=== PATIENT | female | born 1995 | race Caucasian/White ===

== ENCOUNTER 2017-01-25 17:12 | Outpatient (CLI) | payer OTHER ==
[~2017-01-25] VITALS: Ht 157.5 cm; Wt 72.0 kg
[2017-01-25] MEDS ORDERED: PRENTAB9 PO (17:24)
[2017-01-25 17:32] VITALS: BP 139/79
[2017-01-25 18:45] VITALS: BP 138/72
[2017-01-25 20:33] VITALS: BP 126/66
--- NOTE | 2017-01-25 22:57 | HPE ---
DATE OF ADMISSION: 01/25/2017 This lady is a 21-year-old 1, para 0, LMP 05/20/2016, EDC 02/24/2017 at 35 and 5 weeks of gestation, comes in with history shortness of breath, rapid heart rate, uterine irritability. This is of recent onset. She just recently had on Monday which was 2 days ago evaluation by her OB and everything appeared to be normal. Her labs show that she is A+, HIV negative, hepatitis negative, RPR negative, rubella nonimmune. Varicella by history. Urine was negative. Gonorrhea, chlamydia negative. She has had recurring urinary tract infection (UTI) and said test of cures. Her GTT was 98. CF was negative. Echogenic focus was noted in the heart, but the patient declined investigation. Her risk factors is she has anxiety. PHYSICAL EXAMINATION: On examination she does not appear distressed, but the baby is very active and every time it moves causes her discomfort in her abdomen. Her oxygen saturations on room air are 98%. Her EKG shows ventricular tachycardia. She has good deep inspiration. HEENT: She is normocephalic, atraumatic. Neck: Full range of motion. Pupils equal and reactive to light. Distal pulses are symmetric. No evidence of deep venous thrombosis (DVT), pulmonary embolism (PE) or superficial phlebitis. Thyroid is normal, midline, 30 grams, nontender. No bruits. No bruits or wheezes. Lungs are clear to bases. No rhonchi or wheezes. No CVA tenderness. Appropriate symphysis fundus height, nontender. There is activity of the fetus and four quadrant bowel sounds are noted. She has no rashes or lesions or pruritus. No arthralgia or myalgia. No complaints of cough, wheezes, shortness of breath or dyspnea on exertion, no chest pain, not bleeding. Neuro complete. No incontinence, urgency or frequency. No nausea, vomiting, diarrhea or constipation. No diabetic issues. No past gynecology history. She was under 21 and did not have a Pap smear. MEDICAL HISTORY: Noncontributory. FAMILY HISTORY: Noncontributory. She does not smoke or drink, abuse drugs. She is . There is no domestic violence. Her blood pressure is 126/66, respirations are 18, pulse is 100 and regular, temperature is 98.9. Urine is 10.05, pH 6, negative, negative, negative. On pelvic examination not dilated, high posterior. There is no vaginal loss or vaginal bleeding. Symphysis fundus height is appropriate. PLAN OF MANAGEMENT: Get her a cardiology consult, maintain her appointment on 02/07/2017. Precautions were given against fainting, dizziness, loss of consciousness and when to contact the provider. We will arrange for immediate cardiology consult. The patient was discharged, undelivered.
--- NOTE | 2017-01-26 07:31 | ECGEPIP ---
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
== END 2017-01-25 22:44 | disposition home or self-care (01) ==
LOC: M LDO 17:12
PROVIDERS: ATTEND Advanced Practice Midwife
DX: O99.89 Other specified diseases and conditions complicating pregnancy, childbirth and the puerperium (principal); R06.02 Shortness of breath; R10.2 Pelvic and perineal pain; R07.89 Other chest pain; O62.0 Primary inadequate contractions; Z87.440 Personal history of urinary (tract) infections; Z3A.35 35 weeks gestation of pregnancy

== ENCOUNTER → 2017-01-27 | Outpatient (CLI) | payer OTHER ==
[~2017-01-27] MED LIST: PRENTAB9 PO
[2017-01-27 15:04] LABS: BASO % 0.2 % (0.0-1.0); EOS # 0.1 K/mm3 (0.0-0.50); EOS % 0.5 % (0.0-3.0); LARGE UNSTAINED CELL # 0.2 K/mm3 (0.0-0.4); LARGE UNSTAINED CELL % 1.6 % (0.0-4.0); LYMPH # 1.3 K/mm3 (1.5-6.5); LYMPH % 10.1 % (24.0-44.0); MEAN CORPUSCULAR HEMOGLOBIN 31.9 pg (27.0-33.0); MEAN CORPUSCULAR HGB CONC 33.5 g/dl (32.0-36.5); MEAN CORPUSCULAR VOLUME 95.2 fl (80.0-96.0); MONO # 0.7 K/mm3 (0.0-0.8); MONO % 6.3 % (0.0-5.0); NEUTROPHILS # 8.8 K/mm3 (1.8-7.7); NEUTROPHILS % 81.2 % (36.0-66.0); PLATELET COUNT, AUTOMATED 188 k/mm3 (150-450); RED CELL DISTRIBUTION WIDTH 12.5 % (11.5-14.5); WHITE BLOOD COUNT 10.8 K/mm3 (4.0-10.0)
--- NOTE | 2017-01-27 15:54 | REP ---
Duplex extremity venous ultrasound: Bilateral lower extremities. History: Bilateral leg swelling times 3 days. 36 weeks gestation. Chest pain. Findings: The deep veins are anechoic and fully compressible from the groin to the popliteal fossa in the right and left lower extremity. Color flow imaging is homogeneous. Spectral Doppler interrogation demonstrates intact respiratory variation in flow and normal manual augmentation of flow. There is no evidence of deep vein thrombosis. Impression: Negative bilateral lower extremity duplex venous ultrasound. No evidence of deep vein thrombosis. Signed by Rodriguez Ritter MD 01/27/2017 03:46 P
== END ==
LOC: M LAB 14:16
PROVIDERS: ATTEND Internal Medicine Cardiovascular Disease
DX: O99.89 Other specified diseases and conditions complicating pregnancy, childbirth and the puerperium (principal); R06.02 Shortness of breath; R00.0 Tachycardia, unspecified; R60.9 Edema, unspecified; Z3A.36 36 weeks gestation of pregnancy

== ENCOUNTER 2017-02-03 09:52 | Outpatient (CLI) | payer OTHER ==
[~2017-02-03] VITALS: Ht 157.5 cm; Wt 74.0 kg
[2017-02-03 10:02] VITALS: BP 128/66
--- NOTE | 2017-02-04 15:05 | HPE ---
DATE OF ADMISSION: 02/03/2017 HISTORY OF PRESENT ILLNESS: This lady is a 21-year-old 1, para zero, last menstrual period (LMP) 09/2016, estimated date of confinement (EDC) 02/23/2017, at 36 and 2 weeks of gestation with a history of a gush of fluid and contractions. Labs are A positive, HIV negative, hepatitis negative, RPR negative, rubella immune. Varicella nonimmune. Urine negative. Gonorrhea and chlamydia are negative. Initial one-hour glucose was 81 and the 28-week glucose tolerance test (GTT) was 98. Group B streptococcus (GBS) status is unknown. She has no essential risk factors. EXAMINATION: When examined today, she is in no acute distress. Symphysis fundus height is 36, vertex presenting. Category one strip. Examination of her cervix is closed, high posterior, not dilated. No vaginal bleeding. No vaginal loss. Nitrazine was negative. Ferning was negative. PV was negative. She has a category one strip. Her blood pressure 128/66, respirations are 20, pulse is 93 and temperature 98.9 and she is not exhibiting any contractions. Her urine is 1.005, pH of 7, and all the rest is negative. The rest of the examination is unremarkable. She is normocephalic, atraumatic. Neck full range of motion. Pupils equal and reactive to light. Distal pulses symmetric. No evidence of deep venous thrombosis (DVT), pulmonary embolism (PE) or superficial phlebitis. Chest is clear bilaterally to bases. No wheezes or rhonchi. Uterus is nontender. Four quadrant bowel sounds. Category one and nontender uterus. No rashes, lesions or pruritus. No arthralgia or myalgia. No complaints of cough, wheezes, shortness of breath or dyspnea on exertion. No chest pain, not bleeding. Neuro complete. No incontinence, urgency or frequency. No nausea, vomiting, diarrhea or constipation. No diabetic issues. There are no gynecologic issues. PAST MEDICAL AND SURGICAL HISTORY: Noncontributory. FAMILY HISTORY: Noncontributory. SOCIAL HISTORY: She is . There is no domestic violence. ASSESSMENT: In summary, we have a 36 and six with no loss of fluid. No contractions. Discharged with precautions. Has an appointment on February 08, 2017. We spent 35 minutes discussing and an educational component.
== END 2017-02-03 11:32 | disposition home or self-care (01) ==
LOC: M LDO 09:52
PROVIDERS: ATTEND Obstetrics & Gynecology
DX: O26.893 Other specified pregnancy related conditions, third trimester (principal); Z3A.36 36 weeks gestation of pregnancy

== ENCOUNTER 2017-02-27 22:10 | Outpatient (CLI) | payer OTHER ==
[~2017-02-27] VITALS: Ht 157.5 cm; Wt 77.0 kg
== END 2017-02-27 23:07 | disposition home or self-care (01) ==
LOC: M LDO 22:10
PROVIDERS: ATTEND Student in an Organized Health Care Education/Training Program
DX: O36.8130 Decreased fetal movements, third trimester, not applicable or unspecified (principal); Z3A.40 40 weeks gestation of pregnancy

== ENCOUNTER 2017-03-02 22:35 | Inpatient (IN) | payer OTHER ==
[~2017-03-02] VITALS: Ht 157.5 cm; Wt 78.0 kg
[2017-03-02 22:50] VITALS: BP 115/72
[2017-03-03] VITALS (28 sets, daily range): BP systolic 94–161; BP diastolic 50–88
[2017-03-03] MEDS ORDERED: LR 1,000 ML IV SCH ×2 (00:55→06:04)
[2017-03-03 01:10] LABS: MEAN CORPUSCULAR HEMOGLOBIN 32.4 pg (27.0-33.0); MEAN CORPUSCULAR HGB CONC 34.2 g/dl (32.0-36.5); MEAN CORPUSCULAR VOLUME 94.8 fl (80.0-96.0); RED CELL DISTRIBUTION WIDTH 12.6 % (11.5-14.5); WHITE BLOOD COUNT 14.8 K/mm3 (4.0-10.0)
[2017-03-03] MEDS ORDERED: NALBUPHINE HCL 10 MG/ML AMP (J2300) IV ONE (04:30)
[2017-03-03] MEDS ORDERED: NALBUPHINE HCL 10 MG/ML AMP (J2300) IM ONE (04:30)
[2017-03-03] MEDS ORDERED: PROMETHAZINE INJ 25 MG/ML VIAL (J2550) IV ONE (04:30)
[2017-03-03] MEDS ORDERED: OXYTOCIN DRIP 30 UNITS in APPROPRIATE DILUENT 1 EA IV SCH (06:15)
[2017-03-03] MEDS ORDERED: FENTANYL 2MCG/ML ROPIVACAINE 0.2% IN 0.9% NACL 200ML IVBAG As Ordered ONE (08:57)
[2017-03-03] MEDS: DOCUSATE SODIUM 100 MG CAP PO SCH ×2 (09:00→20:58)
[2017-03-03] MEDS ORDERED: diphenhydrAMINE INJ 50MG/ML VIAL (J1200) IV PRN ×2 (10:00→12:45)
[2017-03-03] MEDS ORDERED: LACTATED RINGER'S 1000 ML IV PRN (10:00)
[2017-03-03] MEDS ORDERED: REFRIGERATOR IV KEYS XX PRN (10:00)
[2017-03-03] MEDS ORDERED: EPIDURAL/PCA KEYS XX PRN (10:00)
[2017-03-03] MEDS ORDERED: NALOXONE INJ 0.4 MG/1 ML VIAL (J2310) IV PRN ×3 (10:00→11:10)
[2017-03-03] MEDS ORDERED: EPIDURAL COMMENT XX SCH (10:00)
[2017-03-03] MEDS ORDERED: ePHEDrine SULFATE 25 MG/5 ML(5MG/ML) SYRINGE IV PRN (10:00)
[2017-03-03] MEDS ORDERED: ONDANSETRON 4MG/2ML VIAL (J2405) IV PRN ×3 (10:00→12:45)
[2017-03-03] MEDS ORDERED: FENTANYL/ROPIVACAINE/NACL BAG 200 ML EPIDURAL SCH (10:00)
--- NOTE | 2017-03-03 10:40 | IPNPDOC ---
Text Note Date of Service The patient was seen on 03/03/17. NOTE I assumed care for Mary Carmen at [address] Nieves. Presently she is comfortable with epidural, on pitocin. Presented last night with PROM and SCE was 1/90/-2. She is now 5/80/-1, regular ctx. Cat II tracing with intermittent variable and late decels, mod antoinette, +accels. Meconium present. Had one isolated temp earlier of 100.7F but immediate re-check was 98F and no further temperature elevations. FSE placed during this recent check. She has O2 on, has received 2 IVF boluses, is on her side. Will continue to closely monitor. If no cervical progression in the setting of Cat II tracing, will proceed to . Patient aware. Dr. Nusrat Austin MD VS,Coleman, I+O VS, Coleman, I+O Laboratory Tests 03/03/17 00:57 Red Blood Count 3.76 L, Mean Corpuscular Volume 94.8, Mean Corpuscular Hemoglobin 32.4, Mean Corpuscular Hemoglobin Concent 34.2, Red Cell Distribution Width 12.6 Vital Signs Date Time Temp Pulse Resp B/P (MAP) Pulse Ox O2 Delivery O2 Flow Rate FiO2 03/03/17 05:38 98.0 53 18 105/50 (68) NUSRAT AUSTIN MD March 03, 2017 10:40
[2017-03-03] MEDS ORDERED: TERBUTALINE SULFATE 1 MG/ML VIAL (J3105) As Ordered ONE (10:46)
[2017-03-03] MEDS ORDERED: ceFAZolin 2 GM/D5W 50 ML IV BAG (J0690) As Ordered ONE (11:06)
[2017-03-03] MEDS ORDERED: METOCLOPRAMIDE INJ 10MG/2ML VIAL (J2765) IV PRN (11:10)
[2017-03-03] MEDS ORDERED: NALBUPHINE HCL 10 MG/ML AMP (J2300) IV PRN ×2 (11:10→12:45)
[2017-03-03] MEDS ORDERED: fentaNYL 100 MCG/2 ML INJECTION (J3010) As Ordered ONE (11:13)
[2017-03-03] MEDS ORDERED: SUCCINYLCHOLINE 100 MG/5 ML SYRINGE (J0330) As Ordered ONE (11:13)
[2017-03-03] MEDS ORDERED: PROPOFOL 200 MG/20 ML VIAL As Ordered ONE (11:13)
[2017-03-03] MEDS ORDERED: MIDAZOLAM INJ 2 MG/2 ML VIAL (J2250) As Ordered ONE (11:13)
[2017-03-03] MEDS ORDERED: MORPHINE PRES-FREE INJ 10 MG/10 ML VIAL (J2274) As Ordered ONE (11:13)
[2017-03-03] MEDS ORDERED: ONDANSETRON 4MG/2ML VIAL (J2405) As Ordered ONE (11:20)
[2017-03-03] MEDS ORDERED: KETOROLAC 60 MG/2 ML VIAL (J1885) As Ordered ONE (11:20)
[2017-03-03 11:45] LABS: CORD GAS ABE V -10.7; CORD GAS HCO3 V 16.6 MEQ/L; CORD GAS O2 SAT V 50.3 %; CORD GAS PH V 7.216 UNITS; CORD GAS PO2 V 25.3 mmHg; CORD GAS SBC V 15.2 MEQ/L; CORD GAS TCO2 V 17.9 MEQ/L
[2017-03-03] MEDS ORDERED: AZITHROMYCIN INJ 500 MG, VIAL MATE ADAPTER 1 EACH in D5W 250 ML IV ONE (12:00)
[2017-03-03] MEDS ORDERED: NORCO, ANEXSIA 5/325MG TABLET (HYDROcodone/ACETAMINOPHEN) PO PRN (12:15)
[2017-03-03] MEDS ORDERED: MEASLES,MUMPS,RUBELLA VACCINE INJ (MMR-II) (90707) SC SCH (12:15)
[2017-03-03] MEDS ORDERED: RHOGAM 300 MCG (1500 IU) INJ (J2790) IM SCH (12:15)
--- NOTE | 2017-03-03 12:15 | IPNPDOC ---
Text Note Date of Service The patient was seen on 03/03/17. NOTE See Brief operative note in hard chart and dictated full operative report for complete details of emergent PLTCS. Patient continued to have late decelerations, IUPC placed to confirm MVUs to adjust pitocin appropriately. Immediately after, there was sustained bradycardia to the 50's unresponsive to repositioning on hands and knees. Verbal consent obtained for PLTCS while patient was rushed to the OR and received betadine splash. She required GETA with continued sensation despite her epidural. Procedure was otherwise uncomplicated. Male infant OA presentation, apgars 9/9, weight 3010g or [id number] pHv 7.216, BE -10.7 IVF 1500ml LR, UOP 200ml via de jesus, EBL 500ml. Received anceph 2g IV and azithromycin 500mg IV x1 after the start of the procedure. Dr. Nusrat Austin MD VS,Coleman, I+O VS, Coleman, I+O Laboratory Tests 03/03/17 00:57 Red Blood Count 3.76 L, Mean Corpuscular Volume 94.8, Mean Corpuscular Hemoglobin 32.4, Mean Corpuscular Hemoglobin Concent 34.2, Red Cell Distribution Width 12.6 Vital Signs Date Time Temp Pulse Resp B/P (MAP) Pulse Ox O2 Delivery O2 Flow Rate FiO2 03/03/17 05:38 98.0 53 18 105/50 (68) NUSRAT AUSTIN MD March 03, 2017 12:15
[2017-03-03] MEDS ORDERED: MEPERIDINE INJ 25 MG/ML VIAL (J2175) As Ordered ONE (12:22)
--- NOTE | 2017-03-03 12:23 | REP ---
Clinical: Emergency section. Technique: Portable supine abdominal radiograph. Findings: Epidural catheter identified. No further significant foreign body material or surgical instrumentation is appreciated. The bowel gas pattern is nonspecific. The skeletal structures are intact. Impression: No significant foreign body material. Signed by Xander Love MD 03/03/2017 12:14 P
[2017-03-03] MEDS: MEPERIDINE INJ 25 MG/ML VIAL (J2175) IV PRN ×2 (12:27→13:25)
[2017-03-03] MEDS ORDERED: fentaNYL 100 MCG/2 ML INJECTION (J3010) IV PRN (12:45)
[2017-03-03] MEDS ORDERED: TERBUTALINE SULFATE 1 MG/ML VIAL (J3105) SC ONE (12:45)
[2017-03-03] MEDS: PRENATAL VITAMIN TAB PO SCH (18:06)
[2017-03-03] MEDS: KETOROLAC 30 MG/ML VIAL (J1885) IV SCH (18:07)
[2017-03-03] MEDS: AMPICILLIN SOD/SULBACTAM SOD 3 GM in D5W MINI-BAG PLUS 100 ML IV SCH (23:37)
[2017-03-04] MEDS: KETOROLAC 30 MG/ML VIAL (J1885) IV SCH ×3 (00:11→12:28)
[2017-03-04 02:30] VITALS: BP 92/45
[2017-03-04] MEDS: AMPICILLIN SOD/SULBACTAM SOD 3 GM in D5W MINI-BAG PLUS 100 ML IV SCH ×4 (05:21→22:31)
[2017-03-04 06:12] VITALS: BP 108/63
[2017-03-04 06:38] LABS: MEAN CORPUSCULAR HEMOGLOBIN 32.6 pg (27.0-33.0); MEAN CORPUSCULAR HGB CONC 33.3 g/dl (32.0-36.5); MEAN CORPUSCULAR VOLUME 97.9 fl (80.0-96.0); RED CELL DISTRIBUTION WIDTH 12.9 % (11.5-14.5); WHITE BLOOD COUNT 13.3 K/mm3 (4.0-10.0)
[2017-03-04] MEDS: DOCUSATE SODIUM 100 MG CAP PO SCH ×2 (08:45→20:26)
[2017-03-04] MEDS: PRENATAL VITAMIN TAB PO SCH (08:45)
[2017-03-04 10:10] VITALS: BP 132/64
--- NOTE | 2017-03-04 10:52 | IPN ---
DATE: This and requested circumcision of their male . After discussing the risks and benefits of circumcision, the medical and the nonmedical indications, the penile block and aftercare, answered all questions expressed understanding of penile block, aftercare, risks and benefits, signed and witnessed the consent form. We await the clearance by the supervisor lead refinery,
--- NOTE | 2017-03-04 13:16 | RO ---
DATE OF PROCEDURE: 03/03/2017 PREOPERATIVE DIAGNOSES: 1. Term intrauterine with premature rupture of membranes. 2. Non-reassuring heart tracing with sustained bradycardia. POSTOPERATIVE DIAGNOSES: 1. Term intrauterine with premature rupture of membranes. 2. Non-reassuring heart tracing with sustained bradycardia. 3. Delivered. PROCEDURE: Primary low transverse section, emergent. SURGEON: Elizabeth Austin MD MEDICAL ONCOLOGY PHYSICIAN: Radha Nieves MD ANESTHESIA: Epidural and GETA INDICATION FOR OPERATION: Mary Carmen is a 21-year-old 1, para 1-0-0-1 who was admitted at 41 weeks gestation with premature rupture of membranes, presenting with cervix 80/-1. She had augmentation of her labor with pitocin and developed a category 2 tracing with repetitive late decelerations. Meconium was present during her labor course. An FSE and IUPC were placed. Directly after that she had a sustained heart rate deceleration. She was verbally counseled for section as we wheeled her to the OR emergently. MATERIAL FORWARDED TO THE LAB FOR EXAMINATION: 1) Placenta 2) Venous cord gas (pHv 7.216 with base excess -10.7) DESCRIPTION OF FINDINGS: Male in cephalic presentation. scores 9 and 9. Weight 3010 grams or 6 pounds 10 ounces. Normal appearing uterus, fallopian tubes and ovaries. Meconium was present on entry into the uterus. Infection classification 2. ESTIMATED BLOOD LOSS: 500 mL. IV FLUIDS: 1500 mL Lactated Ringer's. URINE OUTPUT: 200 mL of clear yellow urine. DESCRIPTION OF PROCEDURE: After obtaining verbal consent, the patient was rushed to the OR, Trivedi catheter was already in place as well as bilateral sequential compression devices (SCD). She was prepped with a Betadine splash and epidural anesthesia was not adequate so she received general endotracheal anesthesia. We called for her to have 2 grams of IV Ancef and 500 mg of azithromycin IV when the procedure was underway. A Pfannenstiel skin incision was made with a scalpel and carried through to the underlying layer of fascia sharply. The fascia was incised in the midline and the incision was extended laterally with blunt dissection. Underlying rectus muscles were dissected off bluntly. Rectus muscles were in the midline and the peritoneum was entered digitally. The peritoneal incision was extended superiorly and inferiorly with good visualization of the bladder. The bladder blade was inserted and the lower uterine segment was scored in transverse fashion with a scalpel. The uterus was entered bluntly and the incision was extended with traction. There was meconium noted on entry to the uterus. The bladder blade was removed and the infant's head was delivered atraumatically. The cord was clamped times two and cut. The infant was handed off the awaiting team and venous cord gas was obtained. Arterial gas was not able to be obtained. Notably, the cord was very thin and the placenta was rather small. The placenta was removed with traction on the cord and uterine massage. The uterus was exteriorized and cleared of all clot and debris. She received IV pitocin per protocol. The uterine incision was repaired with #0 Vicryl in a running locking fashion and second layer of the same suture was used to close the hysterotomy in an imbricating fashion. The uterine incision was inspected. Hemostasis was noted. The posterior cul-de-sac was irrigated and the uterus returned to the abdomen. Gutters were cleared of all clots. Hysterotomy reinspected and hemostatic. The fascia was reapproximated with #0 Vicryl suture in a running fashion. The Vincent's fascia was reapproximated using #3-0 Vicryl in a running fashion. The skin edges were reapproximated using three inverted interrupted stitches using #3-0 Vicryl suture followed by a running subcuticular stitch using #4-0 Monocryl suture. The incision was cleaned using a wet lap and dried with a dry lap. At that point an x-ray was performed since a count was not performed prior to the procedure. I viewed the x-ray and there were no retained instruments or laparotomy sponges within the abdomen. Steri-Strips were applied in the usual fashion perpendicular to the Pfannenstiel incision. Two strips of Telfa were layered on top of the Steri-Strips followed by a dry sterile towel. Surgical drapes were removed. Sterile towel was removed. Pressure dressing was applied over the entire surgical incision. Vagina was cleared of all blood clots without active bleeding noted. The procedure was without complications. The patient tolerated the procedure well. She was awakened from general endotracheal anesthesia in good condition and she was taken to recover further in the postanesthesia care unit (PACU). KARIE
[2017-03-04 14:00] VITALS: BP 118/64
[2017-03-04] MEDS: NORCO, ANEXSIA 5/325MG TABLET (HYDROcodone/ACETAMINOPHEN) PO PRN ×2 (17:32→21:30)
[2017-03-04 17:35] VITALS: BP 133/70
[2017-03-04] MEDS: IBUPROFEN 800 MG TAB PO SCH (20:26)
[2017-03-04 22:07] VITALS: BP 115/57
[2017-03-05] MEDS: AMPICILLIN SOD/SULBACTAM SOD 3 GM in D5W MINI-BAG PLUS 100 ML IV SCH (04:38)
[2017-03-05] MEDS: IBUPROFEN 800 MG TAB PO SCH (04:39)
[2017-03-05 05:59] VITALS: BP 120/57
[2017-03-05] MEDS ORDERED: IBUP800T23 PO (08:25)
[2017-03-05] MEDS ORDERED: PRENTAB55 PO (08:25)
[2017-03-05] MEDS ORDERED: LORT5TAB PO (08:25)
[2017-03-05] MEDS ORDERED: COLA100C3 PO (08:25)
[2017-03-05] MEDS: PRENATAL VITAMIN TAB PO SCH (08:28)
[2017-03-05] MEDS: DOCUSATE SODIUM 100 MG CAP PO SCH (08:28)
--- NOTE | 2017-03-05 08:29 | DSES ---
DATE OF ADMISSION: 03/02/2017 DATE OF DISCHARGE: This lady is an 21-year-old, 1, now para 1, was admitted at postterm gestation with premature rupture of membranes and had a nonreassuring heart tones. She had a emergency section of a livebirth male infant weighing 6 pounds 10 ounces, 3010 grams. scores were 9 and 9 at 1 and 5 minutes, respectively. Venous pH was 7.21, base excess was -10.7. The patient's admitting hemoglobin was 12.2, hematocrit 35.6, and platelets were 194. Discharge hemoglobin 8.8, hematocrit 26.6, and platelets were 150. Over the course of her stay, she had two elevated temperatures of 100.1 and 100.7. As prophylaxis, she was started on Unisom, and she has been afebrile for 24 hours, and the Unisom has been discontinued. On discharge, her blood pressure is 133/70, respirations are 16, pulse is 92, temperature is 99.5. We discussed phlebitis, cystitis, mastitis, endometritis, and cellulitis, diet, excise, pain management, perineal, breast, and wound care. On discharge, she was normocephalic, atraumatic. Neck: Full range of motions. Pupils equal and reactive to light. Distal pulses symmetric. No evidence of deep venous thrombosis (DVT), pulmonary embolism (PE), or superficial phlebitis. Breast examination is normal. Chest is clear bilaterally to bases. No wheezes or rhonchi. No costovertebral angle (CVA) tenderness. Uterus 2 below. Four quadrant bowel sounds are noted. Incision is clean and dry. She has no rashes, lesions. or pruritus. No arthralgia or myalgia. No complaints of a cough, wheeze, shortness of breath, or dyspnea on exertion. She has no chest pain. She is not bleeding. She is not bruising. She is neuro complete. She has no incontinency, urgency, or frequency. No nausea, vomiting, diarrhea, or constipation. No diabetic issues. 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 Family history is noncontributory. She does not smoke, drink, or abuse drugs. She is , and there is no domestic violence. In summary, we have a 21-year-old, who had an emergency section for nonreassuring heart tones, male in good condition. Discharged to followup in 2 weeks' time for an incision check and 6 weeks for her check. All questions were answered, and the patient is to be discharged today with her medications.
[2017-03-05] MEDS: NORCO, ANEXSIA 5/325MG TABLET (HYDROcodone/ACETAMINOPHEN) PO PRN (10:35)
== END 2017-03-05 10:45 | disposition home or self-care (01) | DRG 765 ==
LOC: M LDI 22:35 → M OBS 03-03 12:59
PROVIDERS: ADMIT Obstetrics & Gynecology; ATTEND Obstetrics & Gynecology
PROC: 10D00Z1 Extraction of Products of Conception, Low, Open Approach (ICD-10-PCS; principal; 2017-03-03 11:08)
DX: O42.02 Full-term premature rupture of membranes, onset of labor within 24 hours of rupture (principal); O41.1230 Chorioamnionitis, third trimester, not applicable or unspecified; O48.0 Post-term pregnancy; O69.89X0 Labor and delivery complicated by other cord complications, not applicable or unspecified; Z3A.41 41 weeks gestation of pregnancy; O76 Abnormality in fetal heart rate and rhythm complicating labor and delivery; O77.0 Labor and delivery complicated by meconium in amniotic fluid; Z37.0 Single live birth